=== PATIENT | male | born 1960 | race Caucasian/White ===

== ENCOUNTER 2022-05-26 08:14 | Outpatient (CLI) | payer OTHER, SELFPAY | END 2022-05-26 08:15 | disposition home or self-care (01) | LOC: OP CLINIC 08:17 | PROVIDERS: PCP Nurse Practitioner Family; Visit Provider Internal Medicine | DX: Z12.11 Encounter for screening for malignant neoplasm of colon (principal); K63.5 Polyp of colon | CPT/HCPCS: 45385; 88305; J2250; J3010 ==

== ENCOUNTER 2023-08-06 08:18 | Outpatient (CLI) | payer OTHER, SELFPAY | END 2023-08-06 08:19 | disposition home or self-care (01) | PROVIDERS: PCP Nurse Practitioner Family; Visit Provider Nurse Practitioner Family | DX: Z00.00 Encounter for general adult medical examination without abnormal findings (principal); I10 Essential (primary) hypertension; N40.0 Benign prostatic hyperplasia without lower urinary tract symptoms; Z13.0 Encounter for screening for diseases of the blood and blood-forming organs and certain disorders involving the immune mechanism; Z13.6 Encounter for screening for cardiovascular disorders | CPT/HCPCS: 80053; 80061; 85025; G0103 ==

== ENCOUNTER 2024-08-07 08:27 | Outpatient (CLI) | payer MEDICARE, SELFPAY | END 2024-08-07 08:28 | disposition home or self-care (01) | PROVIDERS: PCP Nurse Practitioner Family; Visit Provider Nurse Practitioner Family | DX: Z00.01 Encounter for general adult medical examination with abnormal findings (principal); I10 Essential (primary) hypertension; N40.0 Benign prostatic hyperplasia without lower urinary tract symptoms; Z12.5 Encounter for screening for malignant neoplasm of prostate | CPT/HCPCS: 80053; 80061; 85025; G0103 ==

== ENCOUNTER 2025-02-16 14:18 | Outpatient (CLI) | payer MEDICARE, OTHER, SELFPAY ==
[2025-02-16 14:35] LABS: Hematocrit* 45.6 % (37.0-53.0); Hemoglobin* 16.0 gm/dL (13.5-17.5); Mean Corpuscular HGB Conc 35 gm/dL (32-36); Mean Corpuscular Hemoglobin 30 pg (26-34); Mean Corpuscular Volume 85 fL (80-100); Red Blood Count* 5.39 m/uL (4.30-5.90); White Blood Count* 6.22 K/uL (4.50-11.00)
[2025-02-16 14:38] LABS: Slide Review Reflex No
[2025-02-16 14:47] LABS: Appearance Urine Clear (Clear)
[2025-02-16 16:11] LABS: Albumin* 4.6 g/dL (3.3-5.0); Chloride* 98 mmol/L (96-114); Potassium* 4.7 mmol/L (3.6-5.1); Sodium* 140 mmol/L (135-149)
[2025-02-16 16:13] LABS: Blood Urea Nitrogen* 10 mg/dL (7-30); Creatinine* 1.0 mg/dL (0.5-1.5); Estimated Glomerular Filt Rate 84 ml/min
[2025-02-16 16:14] LABS: Anion Gap 11 mEq/L (7-15); Calcium* 9.7 mg/dL (8.4-10.6); Carbon Dioxide* 31 mmol/L (20-32); Glucose* 96 mg/dL (60-115)
[2025-02-16 17:17] LABS: PTH Intact* 38.1 pg/mL (14.2-75.2)
[2025-02-19 17:27] LABS: 25-Hydroxyvitamin D2 <1.0 ng/mL; 25-Hydroxyvitamin D3 32.2 ng/mL
== END 2025-02-16 14:19 | disposition home or self-care (01) ==
PROVIDERS: PCP Nurse Practitioner Family; Visit Provider Internal Medicine Nephrology
DX: N20.9 Urinary calculus, unspecified (principal); N28.1 Cyst of kidney, acquired; I12.9 Hypertensive chronic kidney disease with stage 1 through stage 4 chronic kidney disease, or unspecified chronic kidney disease; N18.9 Chronic kidney disease, unspecified
CPT/HCPCS: 80069; 81003; 82043; 82306; 82570; 83970; 84550; 85027; 86140

== ENCOUNTER 2025-02-20 05:00 | Outpatient (CLI) | payer MEDICARE, OTHER, SELFPAY | END 2025-02-20 05:01 | disposition home or self-care (01) | LOC: NFLDREF 02-26 01:24 | PROVIDERS: PCP Nurse Practitioner Family; Referring Provider Nurse Practitioner Family; Visit Provider Internal Medicine Nephrology | DX: N20.9 Urinary calculus, unspecified (principal) | CPT/HCPCS: 82340; 82436; 82507; 83735; 83945; 83986; 84105; 84133; 84300; 84392; 84560 ==